=== PATIENT | female | born 1990 | race Caucasian/White ===

== ENCOUNTER 2018-04-17 17:01 | Emergency (ER) | payer OTHER ==
[~2018-04-17] VITALS: Ht 165.1 cm; Wt 78.9 kg
[2018-04-17] MEDS ORDERED: IV NS 0.9% 1,000 ML BAG IV ONE (18:00)
[2018-04-17] MEDS ORDERED: ONDANSETRON HCL/PF 4 MG/2 ML VIAL IVP ONE (18:00)
[2018-04-17] MEDS ORDERED: ONDANSETRON HCL/PF 4 MG/2 ML VIAL ONE (18:06)
--- NOTE | 2018-04-17 19:16 | NUR ---
NAUSEA AND VOMITING STRTED THIS MORNING X 5, NO DIARRHEA. AXOX4, MOBILE,STABLE
--- NOTE | 2018-04-17 19:17 | NUR ---
IV STOP TIME 1914
--- NOTE | 2018-04-17 19:17 | NUR ---
Patient discharged to home in stable condition. Written and verbal after care instructions given. Patient verbalizes understanding of instruction.IV removed. Catheter intact and site benign. Pressure and 4x4 applied to site. No bleeding noted.
[2018-04-17 19:19] VITALS: BP 125/72
== END 2018-04-17 19:20 | disposition home or self-care (01) ==
LOC: ER 17:06
DX: K29.70 Gastritis, unspecified, without bleeding (principal)
CPT/HCPCS: 84703-TC; J2405; J7030

== ENCOUNTER 2019-03-11 14:45 | Emergency (ER) | payer OTHER ==
[~2019-03-11] VITALS: Ht 165.1 cm; Wt 81.6 kg
[2019-03-11 14:52] VITALS: BP 136/77
== END 2019-03-11 15:16 | disposition home or self-care (01) ==
LOC: ER 14:50
DX: B34.9 Viral infection, unspecified (principal)

== ENCOUNTER 2019-03-24 14:25 | Emergency (ER) | payer OTHER ==
[~2019-03-24] VITALS: Ht 162.6 cm; Wt 79.4 kg
[2019-03-24 15:47] VITALS: BP 121/69
[2019-03-24] MEDS ORDERED: IV NS 0.9% 1,000 ML BAG IV ONE (16:30)
[2019-03-24] MEDS ORDERED: ONDANSETRON HCL/PF 4 MG/2 ML VIAL IVP ONE (16:30)
== END 2019-03-24 16:42 | disposition home or self-care (01) ==
LOC: ER 14:33
DX: K52.9 Noninfective gastroenteritis and colitis, unspecified (principal)

== ENCOUNTER 2019-07-09 17:41 | Emergency (ER) | payer OTHER ==
[~2019-07-09] VITALS: Ht 165.1 cm; Wt 81.6 kg
[2019-07-09 18:10] VITALS: BP 144/90
--- NOTE | 2019-07-09 18:31 | NUR ---
Patient discharged to home in stable condition. Written and verbal after care instructions given. Patient verbalizes understanding of instruction.
== END 2019-07-09 18:30 | disposition home or self-care (01) ==
LOC: ER 17:44
DX: H10.33 Unspecified acute conjunctivitis, bilateral (principal)

== ENCOUNTER 2019-07-12 17:48 | Emergency (ER) | payer OTHER ==
[~2019-07-12] VITALS: Ht 165.1 cm; Wt 81.6 kg
[2019-07-12 17:50] VITALS: BP 125/80
[2019-07-12] MEDS ORDERED: predniSONE 20 MG TABLET ONE (18:46)
--- NOTE | 2019-07-12 18:55 | NUR ---
Patient discharged to home in stable condition. Written and verbal after care instructions given. Patient verbalizes understanding of instruction.
[2019-07-12] MEDS ORDERED: predniSONE 20 MG TABLET PO ONE (19:00)
== END 2019-07-12 18:55 | disposition home or self-care (01) ==
LOC: ER 17:50
DX: H10.33 Unspecified acute conjunctivitis, bilateral (principal); H00.036 Abscess of eyelid left eye, unspecified eyelid
CPT/HCPCS: 99283; J7512

== ENCOUNTER 2020-05-07 20:29 | Emergency (ER) | payer OTHER ==
[~2020-05-07] VITALS: Ht 165.1 cm; Wt 72.6 kg
[2020-05-07] MEDS ORDERED: CARISOPRODOL 350 MG TABLET PO ONE (21:00)
[2020-05-07] MEDS ORDERED: KETOROLAC TROMETHAMINE INJ 60 MG/2 ML VIAL IM ONE ×2 (21:00→21:01)
[2020-05-07] MEDS ORDERED: DEXAMETHASONE SOD PHOSPHATE 4 MG/ML VIAL IM ONE (21:00)
[2020-05-07] MEDS ORDERED: CARISOPRODOL 350 MG TABLET ONE (21:01)
[2020-05-07] MEDS ORDERED: DEXAMETHASONE SOD PHOSPHATE 10 MG/ML VIAL ONE (21:01)
[2020-05-07 21:05] LABS: BILIRUBIN,URINE Negative (NEGATIVE); COLOR,URINE YELLOW (YELLOW); LEUKOCYTE ESTERASE ,URINE Small (NEGATIVE); NITRITE, URINE Negative (NEGATIVE); PH,URINE 6.5 (5.0-8.0); PROTEIN,URINE Negative (NEGATIVE); UGLUCOSE Negative (NEGATIVE)
[2020-05-07 21:15] LABS: BACTERIA,URINE Few /HPF (None Seen)
[2020-05-07] MEDS ORDERED: IBUP-1955 PO (22:12)
[2020-05-07] MEDS ORDERED: CYCL10TA9 PO (22:12)
[2020-05-07 22:19] VITALS: BP 125/76
== END 2020-05-07 22:19 | disposition home or self-care (01) ==
LOC: ER 20:31
DX: M54.5 Low back pain (principal); Z79.899 Other long term (current) drug therapy
CPT/HCPCS: 72110; 81001; 84703; 87086; 96372 ×2; 99284; J1100; J1885

== ENCOUNTER 2021-01-18 21:59 | Emergency (ER) | payer OTHER ==
[~2021-01-18] VITALS: Ht 165.1 cm; Wt 72.6 kg
[~2021-01-18 21:59] MED LIST: CYCL10TA9 PO; IBUP-1955 PO
[2021-01-18 22:58] VITALS: BP 127/73
[2021-01-18] MEDS ORDERED: HYDROCODONE/APAP 5/325MG TABLET ONE (23:23)
[2021-01-18] MEDS ORDERED: IBUPROFEN 400 MG TABLET ONE (23:23)
[2021-01-18] MEDS ORDERED: IBUPROFEN 400 MG TABLET PO ONE (23:30)
[2021-01-18] MEDS ORDERED: HYDROCODONE/APAP 5/325MG TABLET PO ONE (23:30)
--- NOTE | 2021-01-18 23:50 | NUR ---
emt at bed side for l knee immobilizer
[2021-01-18] MEDS ORDERED: IBUP-1957 PO (23:53)
== END 2021-01-19 00:33 | disposition home or self-care (01) ==
LOC: ER 22:05
DX: M25.462 Effusion, left knee (principal)
CPT/HCPCS: 73564-TC

== ENCOUNTER 2021-07-22 16:44 | Emergency (ER) | payer OTHER ==
[~2021-07-22] VITALS: Ht 172.7 cm; Wt 86.2 kg
[~2021-07-22 16:44] MED LIST changes: +IBUP-1957 PO
[2021-07-22 16:57] VITALS: BP 111/76
--- NOTE | 2021-07-22 17:01 | NUR ---
The patient bibs for c/o sore throat, headache, fever, body aches x 2 days. In room air and denies SOB. Respiration regular and unlabored. Will continue to monitor the patient.
[2021-07-22] MEDS ORDERED: IBUPROFEN 600 MG TABLET ONE (17:19)
[2021-07-22] MEDS ORDERED: IBUPROFEN 600 MG TABLET PO ONE (17:30)
[2021-07-22] MEDS ORDERED: IBUP-1955 PO (18:24)
[2021-07-22] MEDS ORDERED: ALBU8.5H8 INH (18:28)
--- NOTE | 2021-07-22 18:36 | NUR ---
Patient discharged to home in stable condition. Written and verbal after care instructions given. Patient verbalizes understanding of instruction.
== END 2021-07-22 18:37 | disposition home or self-care (01) ==
LOC: ER 16:50
DX: B34.9 Viral infection, unspecified (principal); Z20.822 Contact with and (suspected) exposure to COVID-19; Z76.0 Encounter for issue of repeat prescription
CPT/HCPCS: 87426; 87804; 99283; C9803

== ENCOUNTER 2023-04-28 10:03 | Emergency (ER) | payer OTHER ==
[~2023-04-28] VITALS: Ht 165.1 cm; Wt 79.4 kg
[~2023-04-28 10:03] MED LIST changes: +ALBU8.5H8 INH
[2023-04-28 10:22] VITALS: BP 118/70; TEMP 98.8
[2023-04-28] MEDS ORDERED: CIPR7.5D9 LEFT EAR (11:20)
[2023-04-28 11:27] VITALS: O2SAT 99
== END 2023-04-28 11:28 | disposition home or self-care (01) ==
LOC: ER 10:03
DX: J06.9 Acute upper respiratory infection, unspecified (principal); H60.92 Unspecified otitis externa, left ear; Z20.822 Contact with and (suspected) exposure to COVID-19

== ENCOUNTER 2023-09-12 07:15 | Emergency (ER) | payer OTHER ==
[~2023-09-12] VITALS: Ht 165.1 cm; Wt 80.3 kg
[~2023-09-12 07:15] MED LIST changes: +CIPR7.5D9 LEFT EAR
[2023-09-12] MEDS: IV NS 0.9% 500 ML BAG IV ONE (07:41)
[2023-09-12] MEDS: MORPHINE SULFATE INJ 2 MG/ML DISP.SYRIN IV ONE (07:41)
[2023-09-12] MEDS: ONDANSETRON HCL/PF 4 MG/2 ML VIAL IVP ONE (07:41)
[2023-09-12] MEDS ORDERED: ONDANSETRON HCL/PF 4 MG/2 ML VIAL ONE (07:43)
[2023-09-12] MEDS ORDERED: MORPHINE SULFATE INJ 2 MG/ML DISP.SYRIN ONE (07:43)
[2023-09-12 07:59] LABS: BASOPHILS # (AUTO) 0.1 K/uL (0.0-0.2); BASOPHILS % (AUTO) 1.2 % (0.0-2.0); EOSINOPHILS # (AUTO) 0.5 K/uL (0.0-0.7); EOSINOPHILS % (AUTO) 4.9 % (0.0-6.0); HEMATOCRIT 44 % (33-45); HEMOGLOBIN 15.1 g/dL (11.5-14.8); LYMPHOCYTES # (AUTO) 2.7 K/uL (0.8-4.8); LYMPHOCYTES % (AUTO) 27.5 % (20.0-44.0); MEAN CORPUSCULAR HEMOGLOBIN 32 PG (26.0-33.0); MEAN CORPUSCULAR HGB CONC 35 g/dl (31.0-36.0); MEAN CORPUSCULAR VOLUME 94 fL (82-100); MONOCYTES # (AUTO) 0.9 K/uL (0.1-1.30); MONOCYTES % (AUTO) 9.4 % (2.0-12.0); NEUTROPHILS # (AUTO) 5.6 K/uL (1.8-8.9); PLATELET COUNT (AUTO) 326 K/uL (150-450); RED BLOOD CELL COUNT(AUTO) 4.65 MIL/uL (4.0-5.2); RED CELL DISTRIBUTION WIDTH 12.1 % (11.5-15.0); WHITE BLOOD COUNT (AUTO) 9.8 K/uL (4.3-11.0)
[2023-09-12 07:59] LABS: APPEARANCE,URINE SLIGHTLY CLOUDY (CLEAR); BILIRUBIN,URINE 1+ (NEGATIVE); BLOOD, URINE 1+ Ery/uL (NEGATIVE); COLOR,URINE DARK YELLOW (YELLOW); KETONES,URINE 2+ mg/dL (NEGATIVE); LEUKOCYTE ESTERASE ,URINE 1+ (NEGATIVE); NITRITE, URINE POSITIVE (NEGATIVE); PROTEIN,URINE 2+ mg/dl (NEGATIVE); UGLUCOSE TRACE mg/dL (NEGATIVE)
[2023-09-12 08:03] LABS: PREGNANCY TEST URINE QUAL NEGATIVE (NEGATIVE)
[2023-09-12 08:03] LABS: CREATININE 0.7 mg/dL (0.6-1.3); POTASSIUM 3.8 mmol/L (3.5-5.1)
[2023-09-12 08:08] LABS: ALBUMIN 3.6 g/dL (3.4-5.0); BILIRUBIN,DIRECT 0.2 mg/dL (0.0-0.2); TOTAL PROTEIN, SERUM 8.1 g/dL (6.4-8.2)
[2023-09-12 09:12] LABS: RBC,URINE 0-2 /HPF (0-2)
[2023-09-12 09:13] LABS: ADD URINE CULTURE YES; BACTERIA,URINE Few /HPF (None Seen); SQUAMOUS EPITHELIAL CELL,UR Rare /HPF (None Seen)
[2023-09-12] MEDS: KETOROLAC TROMETHAMINE INJ 30 MG/ML VIAL IV ONE ×2 (10:16→10:17)
[2023-09-12] MEDS ORDERED: IBUP-1957 PO (10:17)
[2023-09-12] MEDS ORDERED: CIPR-262 PO (10:17)
[2023-09-12] MEDS ORDERED: KETOROLAC TROMETHAMINE INJ 30 MG/ML VIAL ONE (10:19)
[2023-09-12 10:28] VITALS: BP 127/77; TEMP 98; O2SAT 97
== END 2023-09-12 10:28 | disposition home or self-care (01) ==
LOC: ER 07:18
DX: N12 Tubulo-interstitial nephritis, not specified as acute or chronic (principal); R11.0 Nausea
CPT/HCPCS: 99285; 74176; 96374; 96375; 85025; 80048; 87086; 83690; 80076; 84703; 81001; 36415; J1885; J2405; J7040; J2270

== ENCOUNTER 2023-09-14 02:21 | Emergency (ER) | payer OTHER ==
[~2023-09-14] VITALS: Ht 165.1 cm; Wt 79.4 kg
[~2023-09-14 02:21] MED LIST changes: +CIPR-262 PO
[2023-09-14 02:28] VITALS: TEMP 98.1
[2023-09-14] MEDS ORDERED: LIDOCAINE 1%-EPI 1:100,000 20 ML VIAL ONE (02:53)
[2023-09-14] MEDS: LIDOCAINE 1%-EPI 1:100,000 50 ML VIAL IJ ONE (03:32)
[2023-09-14 03:49] LABS: BASOPHILS # (AUTO) 0.1 K/uL (0.0-0.2); BASOPHILS % (AUTO) 0.7 % (0.0-2.0); EOSINOPHILS # (AUTO) 0.1 K/uL (0.0-0.7); EOSINOPHILS % (AUTO) 0.8 % (0.0-6.0); HEMATOCRIT 41 % (33-45); HEMOGLOBIN 13.9 g/dL (11.5-14.8); LYMPHOCYTES # (AUTO) 5.1 K/uL (0.8-4.8); LYMPHOCYTES % (AUTO) 51.7 % (20.0-44.0); MEAN CORPUSCULAR HEMOGLOBIN 32 PG (26.0-33.0); MEAN CORPUSCULAR HGB CONC 34 g/dl (31.0-36.0); MEAN CORPUSCULAR VOLUME 93 fL (82-100); MONOCYTES # (AUTO) 0.5 K/uL (0.1-1.30); MONOCYTES % (AUTO) 5.5 % (2.0-12.0); NEUTROPHILS # (AUTO) 4.1 K/uL (1.8-8.9); NEUTROPHILS % (AUTO) 41.3 % (43.0-81.0); PLATELET COUNT (AUTO) 366 K/uL (150-450); RED BLOOD CELL COUNT(AUTO) 4.41 MIL/uL (4.0-5.2); RED CELL DISTRIBUTION WIDTH 12.3 % (11.5-15.0); WHITE BLOOD COUNT (AUTO) 9.8 K/uL (4.3-11.0)
[2023-09-14 04:14] LABS: APPEARANCE,URINE CLEAR (CLEAR); BILIRUBIN,URINE NEGATIVE (NEGATIVE); BLOOD, URINE 2+ Ery/uL (NEGATIVE); COLOR,URINE YELLOW (YELLOW); KETONES,URINE NEGATIVE (NEGATIVE); LEUKOCYTE ESTERASE ,URINE 1+ (NEGATIVE); NITRITE, URINE NEGATIVE (NEGATIVE); PROTEIN,URINE NEGATIVE (NEGATIVE); UGLUCOSE NEGATIVE (NEGATIVE); UROBILINOGEN,URINE 0.2 EU/dL (0.2)
[2023-09-14 04:17] LABS: ADD URINE CULTURE YES; BACTERIA,URINE Few /HPF (None Seen); SQUAMOUS EPITHELIAL CELL,UR Few /HPF (None Seen)
[2023-09-14 04:19] LABS: CALCIUM, SERUM 8.4 mg/dL (8.5-10.1); CARBON DIOXIDE 28 mmol/L (21-32); CHLORIDE 108 mmol/L (98-107); CREATININE 0.6 mg/dL (0.6-1.3); GLUCOSE 155 mg/dL (74-106); POTASSIUM 3.4 mmol/L (3.5-5.1); SODIUM SERUM 146 mmol/L (136-145); UREA NITROGEN, BLOOD 4 mg/dL (7-18)
[2023-09-14 04:21] LABS: AMPHETAMINE, URINE NEGATIVE (NEGATIVE); BARBITURATE, URINE NEGATIVE (NEGATIVE); BENZODIAZEPINE, URINE NEGATIVE (NEGATIVE); CANNABINOID, URINE NEGATIVE (NEGATIVE); OPIATE, URINE NEGATIVE (NEGATIVE); PHENCYCLIDINE SCREEN,URINE NEGATIVE (NEGATIVE)
[2023-09-14 04:23] LABS: COCCAINE, URINE POSITIVE (NEGATIVE)
[2023-09-14 04:26] LABS: ACETAMINOPHEN <10 ug/ml (10-30); ALANINE AMINOTRANSFERASE 30 U/L (12-78); ALBUMIN 3.5 g/dL (3.4-5.0); ALCOHOL, BLOOD 254 mg/dL (0-10); ALKALINE PHOSPHATASE 109 U/L (46-116); ASPARTATE AMINOTRANSFERASE 24 U/L (15-37); BILIRUBIN,DIRECT 0.1 mg/dL (0.0-0.2); BILIRUBIN,TOTAL 0.3 mg/dL (0.2-1.0); SALICYLATE 1.3 mg/dL (2.8-20.0); TOTAL PROTEIN, SERUM 7.9 g/dL (6.4-8.2)
[2023-09-14 13:33] LABS: PREGNANCY TEST URINE QUAL NEGATIVE (NEGATIVE)
[2023-09-14 15:21] VITALS: BP 116/94; O2SAT 98
== END 2023-09-14 17:03 ==
LOC: ER 02:23
DX: S61.411A Laceration without foreign body of right hand, initial encounter (principal); F19.10 Other psychoactive substance abuse, uncomplicated; R10.2 Pelvic and perineal pain; Z79.1 Long term (current) use of non-steroidal anti-inflammatories (NSAID); Z79.52 Long term (current) use of systemic steroids; Z79.899 Other long term (current) drug therapy; Z20.822 Contact with and (suspected) exposure to COVID-19; X78.8XXA Intentional self-harm by other sharp object, initial encounter; Y93.89 Activity, other specified; Y92.89 Other specified places as the place of occurrence of the external cause; Y99.8 Other external cause status
CPT/HCPCS: 12002; 36415; 80048; 80076; 80143; 80307; 80320; 81001; 84703; 85025; 87426; 99285; A6403; J3490; G0480